=== PATIENT | female | born 1975 ===

== ENCOUNTER 2025-01-01 12:34 | Emergency (ER) | payer OTHER, SELFPAY ==
--- NOTE | ~2025-01-01 | CT_ITS ---
EXAMINATION: CT ABDOMEN AND PELVIS WITH CONTRAST CLINICAL INFORMATION:diffuse abdominal pain 2 months, repetitive vomiting and diarrhea COMPARISON: None available. TECHNIQUE: Multidetector volumetric images were obtained from the superior aspect of the liver through the pubic symphysis following administration 85 mL of Omnipaque 350 intravenous contrast. Sagittal and coronal reformatted images were obtained on the technologist's workstation. Oral contrast: No This CT examination was performed using dose optimization techniques as appropriate, variously including the following: *Automated exposure control *Adjustment of mA and/or kV according to patient size (this includes techniques or standardized protocols for targeted exams where dose is matched to indication/reason for exam; i.e. extremities or head) *Use of iterative reconstruction technique DLP: 1039 mGY*cm FINDINGS: LUNG BASES: The visualized lung bases are unremarkable. LIVER, GALLBLADDER, AND BILIARY TREE: Circumscribed 7 mm low attenuating lesion in the superior left lateral segment liver likely represent small simple hepatic cyst. Gallbladder is nonvisualized, likely from cholecystectomy. PANCREAS: Unremarkable. SPLEEN: Unremarkable. ADRENAL GLANDS: Unremarkable. KIDNEYS AND URETERS: The kidneys are normal in size, shape, and attenuation. No hydronephrosis, hydroureter, or calculi seen. No perinephric stranding. BLADDER: Unremarkable. GASTROINTESTINAL TRACT: A few scattered pseudodiverticula are present in the transverse, descending, and sigmoid colon. The appendix is within normal limits. ABDOMINAL WALL: Small umbilical hernia contains adipose tissue. LYMPH NODES: There is a right external iliac lymph node measuring 12 mm short axis and a left-sided node measuring 14 mm short axis. There is no other adenopathy. VASCULAR: Unremarkable. PELVIC VISCERA: Uterus and ovaries are unremarkable. There is no free fluid. OSSEOUS STRUCTURES: Unremarkable. CT/CT abdomen pelvis w IV con IMPRESSION: Lymphadenopathy. There are 2 enlarged lymph nodes adjacent the external iliac vessels, near the inguinal canal. The right lymph node measures 12 mm, and the left measures 14 mm short axis. These could represent reactive hyperplastic nodes, but malignancy is not ruled out. Diverticulosis without sign of infection. Fleischner guidelines were followed. Electronically signed by: Price Snider MD 01/01/2025 03:59 PM EDT
[2025-01-01 12:44] VITALS: BP 115/75; PULSE 84; RESP 18; TEMP 36.6; O2SAT 97; BMI 36.1
--- NOTE | 2025-01-01 12:44 | ED.GENADULT ---
HPI - General Adult General Chief complaint: Abdominal Pain Stated complaint: itching on hands, pain on R abd Time Seen by Provider: 01/01/25 13:51 Source: patient, family, RN notes reviewed and systems engineer Mode of arrival: ambulatory Limitations: language barrier History of Present Illness ED Provider: Sera Marroquin PA-C HPI narrative: 49-year-old woman presenting to the emergency department today for evaluation of abdominal pain. Utilized a formal solar panel installer for her history and physical process as she did want to use her but I had fear of the communication being limited history being limited due to this. Occurs patient reported that only for the last 2 months she has had nausea vomiting and diarrhea almost on a daily basis associated sometimes with headaches. An as physical with on she then stated that she had a similar episode despite denying this originally that she had this same thing happened to her last year and she got a colonoscopy at [facility] and was told that she had potentially diverticulitis but then there was no follow up and no antibiotics. She has not established with a primary care provider. She did try to call her health insurance who gave her information but she is still not established with 1. Patient moved to [facility] in 2019. She denies any known food allergies. No fevers no chills. She reports food not making it worse but sometimes does notice it at causes more of her symptoms. She denies having any blood in her stool or her vomit. No history of in a few weeks she is. She is able to tolerate p.o. fluids and void regularly no symptoms. She denies having a backache. No current headache. Patient also reports that her hands feel very itchy for the last several weeks. She notices sometimes her palms or red. She does work with cleaning products but wears gloves she does wash her hands frequently. She has not noticed any itchiness beyond this area. This has never happened to her before she has been doing this job for about 1 year now. She denies any chemical exposures. Related Data Home Medications ?Medication ?Instructions ?Recorded ?Confirmed diclofenac sodium 50 mg 50 mg PO BID 02/17/22 tablet,delayed release podofilox 0.5 % topical solution ml topical 02/17/22 tizanidine 2 mg tablet 2 mg PO BEDTIME 02/17/22 Previous Rx's ?Medication ?Instructions ?Recorded ondansetron HCl 4 mg tablet 4 mg PO Q8H PRN nausea and 01/01/25 vomiting #10 tabs Allergies Allergy/AdvReac Type Severity Reaction Status Date / Time No Known Allergies Allergy Verified 01/01/25 12:47 Review of Systems Review of Systems: Yes all other systems are reviewed and are negative PMFSH Past Medical History Attestation statement: The following information was validated with the patient. Source: old records reviewed (no old records to review) and nursing notes reviewed Physical Exam ED Exam Exam: General: Appears in no acute distress, appears well nourished body habitus is obese, appears. No septic or ill-appearing. Vitals reviewed normal, PMH/Social and Surgical hx reviewed including allergies and current medications. no prior visits here. Head: Normocephalic, no obvious trauma or skin lesions noted. Eyes: EOMI ENMT: moist oral mucosa, Neck: trachea midline Cardiovascular: peripheral perfusion normal, Regular heart rate, regular rhythm Respiratory: no respiratory distress Abdomen: protuberant abdomen, TTP periumbical and mid to lower suprapubic region, no guarding Extremities: warm and moving without difficulty dry skin both palms, crackes at bases but no erythema, she is witnessed to be rolling hands OCD nervous/soothing- like Psych: Cooperative, smiling Neuro: Alert and oriented. Vital Signs: Vital Signs - 24 hr 01/01/25 12:44 01/01/25 13:46 Temperature 97.9 F Pulse Rate 84 80 Respiratory Rate 18 16 Blood Pressure 115/75 107/68 Pulse Oximetry 97 98 Oxygen Delivery Method Room Air Room Air BMI result Body Mass Index 36.1 Course Course Course Narrative: This is a Rapid Medical Examination (RME) performed by Cyn Del Rosario PA-C in triage. Full HPI, ROS, assessment and treatment plan per primary provider in the Main ED. Hx: 49 yo F here for eval of R sided abd pain x2 mo. reports history of liver issues in 2017 in [facility]. admits to vomiting and diarrhea. Plan: labs Medications Administered Discontinued Medications Generic Name Dose Route Start Last Admin Trade Name Freq PRN Reason Stop Dose Admin Iohexol 100 ml 01/01/25 15:30 01/01/25 15:36 Iohexol 350 Mg/Ml 100 Ml Infus..Btl IV 01/01/25 15:31 85 ml ONCE ONE Administration Medical Decision Making Medical Decision Making MDM Narrative: Well-appearing 49-year-old female here today. The utilize a formal solar panel installer for patient's history physical and discharge process. She has ongoing chronic GI symptoms it appears to have unclear history of what her latest colonoscopy results was over a year ago. She had abdominal labs and CT scan or ordered for further workup. At this time differential on fluids functional dyspepsia, colitis, diverticulitis, gastritis, irritable bowel syndrome or inflammatory bowel syndrome. She is afebrile and well-appearing abdomen mildly tender pain well-controlled. Patient's workup largely unremarkable she has no evidence of leukocytosis or metabolic derangement no hepatobiliary disease. CT scan of the abdomen shows diverticulosis without any diverticulitis. No intra-abdominal infectious pathology noted- given lymphadenopathy- will refer to GI for further consult/work-up. This was discussed with the patient who demonstrated verbal understanding of the plan and agreed. She was discharged home stable Differential Diagnosis Differential Diagnoses: The differential diagnosis associated with the presentation includes See [facility] Admission/Observation Consideration of admission/observation: Escalation of care including admission/observation considered Patient would have been admitted to the hospital had her work up had any findings where hospital admission was appropriate and her clinical presentation warranted hospital admission. Lab Data [facility] Lab Attestation statement: I reviewed the patient's lab results. No leukocytosis no metabolic dysfunction or kidney injury. 01/01/25 12:53 01/01/25 14:42 Labs: Lab Results 01/01/25 01/01/25 01/01/25 Range/Units 12:53 14:18 14:42 WBC 6.0 (4.8-10.8) X10*3/uL RBC 4.54 (4.20-5.50) X10*6/uL Hgb 12.7 (12.0-16.0) g/dl Hct 38.3 (37.0-47.0) % MCV 84.4 (80.0-98.0) fL MCH 28.0 (27.0-33.0) pg MCHC 33.2 (31.0-35.0) g/dl RDW 13.5 (11.0-16.0) % Plt Count 263 (160-400) X10*3/uL MPV 10.9 (9.4-12.3) fL Immature Gran % (Auto) 0.5 H (0.0-0.4) % Neut % (Auto) 60.4 (45-73) % Lymph % (Auto) 28.4 (20-40) % Sharp % (Auto) 7.7 (2-11) % Eos % (Auto) 2.5 (0-4) % Baso % (Auto) 0.5 (0-2) % Lymph # (Auto) 1.7 (1.2-4.9) X10*3/uL Sharp # (Auto) 0.5 (0.1-1.2) X10*3/uL Eos # (Auto) 0.2 (0.0-0.4) X10*3/uL Baso # (Auto) 0.0 (0.0-0.2) X10*3/uL Abs Immat Gran (auto) 0.03 (0.00-0.03) X10*3/uL Absolute Neuts (auto) 3.6 (2.0-8.3) x10*3/uL Absolute Nucleated RBC 0.000 (0.0-0.012) X10*3/uL Nucleated RBC % (auto) 0.0 (0.0-0.2) /100WBC Sodium 140 (135-145) mmol/L Potassium 4.5 (3.3-5.1) mmol/L Chloride 108 (96-108) mmol/L Carbon Dioxide 24 (22-29) mmol/L Anion Gap 13 (12-20) BUN 14 (9-16) mg/dL Creatinine 0.95 (0.5-1.4) mg/dL Estim Creat Clear Calc 70.3 Estimated GFR > 60 Random Glucose 94 (60-115) mg/dL Calcium 9.5 (8.4-10.2) mg/dL Magnesium 1.8 (1.6-2.6) mg/dL Total Bilirubin 0.9 (0.0-1.0) mg/dL Direct Bilirubin 0.2 (0.0-0.5) mg/dL AST 28 (5-31) U/L ALT 26 (0-31) U/L Alkaline Phosphatase 103 (39-117) U/L Total Protein 7.3 (6.5-8.0) g/dL Albumin 4.3 (3.5-5.0) g/dL Lipase 80 H (8-78) U/L Urine Color Yellow Urine Appearance Clear Urine pH 5.5 (5.0-9.0) Ur Specific [place] <= 1.005 (1.005-1.025) Urine Protein Negative (Neg-Trace) mg/dL Urine Glucose (UA) Negative (Negative) mg/dL Urine Ketones Negative (Negative) mg/dL Urine Blood Negative (Negative) Urine Nitrite Negative (Negative) Ur Leukocyte Esterase Negative (Negative) Urine Test NEGATIVE (NEGATIVE) Independent Interpretation I performed an independent interpretation of an: CT Scan Radiology Impression Discussion of test interpretation with radiology: I have reviewed the radiologist's reading. Radiologist Impression: IMPRESSION: Lymphadenopathy. There are 2 enlarged lymph nodes adjacent the external iliac vessels, near the inguinal canal. The right lymph node measures 12 mm, and the left measures 14 mm short axis. These could represent reactive hyperplastic nodes, but malignancy is not ruled out. Diverticulosis without sign of infection. Independent Historian Clinical information obtained from an independent historian. History obtained from or confirmed by: Spouse and Other (solar panel installer) Prescription Management I considered prescription management with: Pain Medication Social Determinants Patient?s care significantly limited by Social Determinants of Health including: Other Social Determinant of Health Discharge Plan Discharge Clinical Impression: Diverticulosis, Abdominal pain, Gastroenteritis Patient Disposition: Home, Self-Care Instructions: Diverticulosis (DC), Abdominal Pain (ED) Additional Instructions: Acudi? a urgencias por s?ntomas cr?nicos de n?useas, v?mitos y diarrea. Sun tomograf?a computarizada de hoy no presenta un proceso infeccioso rafael. Divya an?lisis son tranquilizadores. Por favor, consulte con gastroenterolog?a para savita consulta externa. Conc?ntrese en la hidrataci?n. Si el dolor abdominal empeora o nota benjamin en las heces o el v?sanjiv, acuda a urgencias. Use Zofran si es necesario para las n?useas. Llame a gastroenterolog?a para programar savita jody. You were seen in the emergency department due to chronic symptoms of nausea, vomiting and diarrhea. There is not an acute infectious process on your CT scan today. Your labs are reassuring. Please follow up outpatient with gastroenterology. Focus on hydration. If you experience worsening abdominal pain or notice blood in your stool or vomit, please return to the emergency department. Use zofran if needed for nausea. Call gastroenterology to schedule an appointment. Your CT results: IMPRESSION: Lymphadenopathy. There are 2 enlarged lymph nodes adjacent the external iliac vessels, near the inguinal canal. The right lymph node measures 12 mm, and the left measures 14 mm short axis. These could represent reactive hyperplastic nodes, but malignancy is not ruled out. Diverticulosis without sign of infection. Prescriptions: New ondansetron HCl 4 mg tablet 4 mg PO Q8H PRN (Reason: nausea and vomiting) Qty: 10 0RF No Action tizanidine 2 mg tablet 2 mg PO BEDTIME podofilox 0.5 % solution topical diclofenac sodium 50 mg tablet,delayed release (DR/EC) 50 mg PO BID Referrals: [facility] [place] Gastroenterology Services [Provider Group, Gastroenterology] Referral Note: chronic abd pain Interventions: ED Discharge Assessment Last Done: 01/01/25 17:16 Discharge Date/Time: 01/01/25 17:17 Print Language: Greenlandic
[2025-01-01 13:04] LABS: MANUAL DIFF FLAG NO
[2025-01-01 13:11] LABS: Hematocrit 38.3 % (37.0-47.0); Hemoglobin 12.7 g/dl (12.0-16.0); Imm Gran Abs Auto 0.03 X10*3/uL (0.00-0.03); Imm Gran Pct Auto 0.5 % (0.0-0.4); Lymphocytes Absolute Auto 1.7 X10*3/uL (1.2-4.9); Mean Corpuscular HGB Conc 33.2 g/dl (31.0-35.0); Mean Corpuscular Hemoglobin 28.0 pg (27.0-33.0); Mean Corpuscular Volume 84.4 fL (80.0-98.0); NRBC Abs Auto 0.000 X10*3/uL (0.0-0.012); NRBC Pct Auto 0.0 /100WBC (0.0-0.2); Platelet Count 263 X10*3/uL (160-400); Red Blood Count 4.54 X10*6/uL (4.20-5.50); White Blood Count 6.0 X10*3/uL (4.8-10.8)
[2025-01-01 13:24] LABS: Alanine Aminotransferase 26 U/L (0-31); Albumin Level 4.3 g/dL (3.5-5.0); Alkaline Phosphatase 103 U/L (39-117); Aspartate Amino Transferase 28 U/L (5-31); Lipase 80 U/L (8-78); Magnesium 1.8 mg/dL (1.6-2.6); Total Protein 7.3 g/dL (6.5-8.0)
--- NOTE | 2025-01-01 13:42 | PC.NURSE ---
49 F presents to ED with abdominal pain, n/v x 2 days with a headache. A+OX4, calm, cooperative, and ambulatory. Pt sts pain started suddenly, starts in upper admomen and travels to L and R lower abdomen. Pt denies any CP or SOB, RR even and unlabored. Sts 8/10 pain in abdomen. Pt also c/o L sided headache and L hand pain.
[2025-01-01 13:46] VITALS: BP 107/68; PULSE 80; RESP 16; O2SAT 98
[2025-01-01 14:23] LABS: Appearance Urine Clear; Glucose Urine UA Negative (Negative); PH 5.5 (5.0-9.0); Specific Gravity - Urine <= 1.005 (1.005-1.025)
[2025-01-01 14:35] LABS: UPreg QC Valid YES
[2025-01-01 15:00] LABS: Anion Gap 13 (12-20); Blood Urea Nitrogen 14 mg/dL (9-16); Calcium 9.5 mg/dL (8.4-10.2); Carbon Dioxide 24 mmol/L (22-29); Chloride 108 mmol/L (96-108); Creatinine Clr Calc Pharmacy 70.3; Estimated Glomerular Filt Rate > 60; Potassium 4.5 mmol/L (3.3-5.1); Sodium 140 mmol/L (135-145)
[2025-01-01] MEDS: iohexoL 350 MG/ML 100 ML INFUS..BTL IV (15:36)
--- OUTSIDE RECORDS SUMMARY | 2025-01-01 15:53 | XMS_ITS ---
Author Name [facility] Organization Unknown Care Team Organization Name Specialty Phone Email Start Date End Da te [facility] 03/08/20222023
--- OUTSIDE RECORDS SUMMARY | 2025-01-01 15:53 | XMS_ITS | Encounter Summary ---
Author Organization [facility] Address [address] [place] [address] Care Team Providers Care Efficiency Miner Name Role Phone Alcira Cowan MORTGAGE LOAN PROCESSING CLERK Primary Care Provider [phone] Encounter Details Date Type Department Care Team (Late st Contact Info) Description 01/01/2025 Interim Notes [facility] [address] [place] [id number] Alcira Cowan NP [address] [place] [address] Social History Tobacco Use Types Packs/Day Years Used Date Smoking Tobacco: Never Smokeless Tobacco: Never Alcohol Use Standard Drinks/Week Comments Never 0 (1 standard drink = 0.6 oz pur e alcohol) Social Connections Answer Date Recorded How often do you feel lonely or isolated from th ose around you? 1 05/10/2024 Financial Resource Strain Answer Date R ecorded Hard to pay for: Food 1 05/10/2024 Stress Answer Date Recorded Do you feel these kinds of stress these days? 1 05/10/2024 Physical Activity Answer Date Recorded Physical Activity 0 05/12/2021 Food Insecurity Answer Date Recorded Hard to pay for: Food 1 05/10/2024 Transportation Needs Answer Date Record ed Hard to pay for: Transportation 1 05/10/2024 Housing Stability Answer Date Recorded Hard to pay for: Rent/Mortgage payment 1 05/10/2024 Safety and Environment Answer Date Cyril rded How often does anyone, inclu ding family and friends, physically hurt you? 1 05/10/2024 Utilities Answer Date Recorded Hard to pay for: Utilities 1 05/10 Employment Answer Date Recorded Stress 0 01/22/2024 Comments No Sex and Gender Information Value Date Recorded Sex Assigned at Female 05/04/2023 10:03 AM PST Legal Sex Female 7:04 AM PST Gender Identity Female 05/04/2023 10:03 AM PST Sexual Orientation Straight 05/04/2023 10 :03 AM PST documented as of this encounter Plan of Treatment Not on file documented as of this encounter Visit Diagnoses Not on filedocumented in this encounter Additional Health Concerns Assessment Noted Time PHQ-9 Depression Total Score: 3 05/10/19 1:44 PM PST A Depression follow-up plan has been documented for the patient 05/10/2024 4:16 PM PST documented as of this encounter Care Teams Efficiency Miner Relationship Specialty Start Date End Date Alcira Cowan NP [address] [place] [address] PCP - General Family Medicine, MORTGAGE LOAN PROCESSING CLERK 12/23/24 documented as of this encounter
--- OUTSIDE RECORDS SUMMARY | 2025-01-01 15:53 | XMS_ITS | Clinical Summary ---
Author Organization [facility] Address [address] [place] [address] Care Team Providers Care Stretcher Drier Operator Name Role Phone Alcira Cowan PONCHO Primary Care Provider [phone] Source Comments PLEASE NOTE, if this patient is a minor, it may be UNLAWFUL to discuss sensitive information that is contained in these records (such as FAMILY PLANNING, MENTAL HEALTH or SUBSTANCE ABUSE) with the minor patient's parent or other person without the patient's specific authorization.[facility] Allergies No known active allergies Medications riboflavin, vitamin B2, 400 mg tab Take 400 mg by mouth [address] Active [address] tablet Take 81 mg by mouth 3 Active magnesium oxide,aspartate,c itr (TRIPLE MAGNESIUM COMPLEX) 400 mg magnesium cap Take 400 mg by mouth 3 Active aspirin-acetamino phen-caffeine (EXCEDRIN MIGRAINE) 250-250-65 mg per tabletIndications :Migraine without aura and without status migrainosus, not intractable Take 1 Tablet by mouth every 6 (six) hours as needed for pain 60 Tablet 1 4 Active benzonatate (TESSALON) 200 mg capsuleIndication s:Viral upper respiratory tract infection Take 1 Capsule by mouth 3 (three) times daily as needed for cough 30 Capsule 5 Active betamethasone dipropionate 0.05 % ointmentIndicatio ns:Acute hand eczema Apply topically 2 (two) times daily. 45 g 5 Active Active Problems Problem Noted Date Diagnosed Date Colon cancer screening 12/26/2024 Overview (12/26/2024): 09/17/24 Colonoscopy [facility] IMPRESSION:Diverticulosis in the sigmoid colon. - No specimens collected. Repeat colonoscopy in 10 years for screening H/O mammogram 04/12/2024 Overview (04/12/2024): 04/10/2024 - Mammogram - Impression: No Mammographic evidence of malignancy. Recommendation: Annual Mammographic screening. Bi-RADS: 1 ( Negative) Prediabetes 05/05/2023 Migraine without aura and wi thout status migrainosus, not intractable 05/05/2023 Overview (05/05/2023): Follows with neurologist Class 1 obesity due to exces s calories without serious comorbidity with body mass index (BMI) of 34.0 to 34.9 in adult 05/05/2023 Moderate episode of recurren t major depressive disorder ([facility]) 05/05/2023 Encounters Date Type Department Care Team Description 01/01/2025 Interim Notes [address] [phone] Alcira Cowan NP 12/17/2024 10:00 AM EDT Office Visit [address] [phone] Eddi Jeffery FNP 10/08/2024 9:00 AM EDT Telemedicine Visit [address] [phone] from Last 3 Months Immunizations Immunization Administration Dates Next Due Flu, Preservative Free 05/05/2023,07/16/2020 INFLUENZA, SEASONAL, INJECTABLE 05/05/2021 PFIZER COVID VACCINE, PURPLE CAP, 12+ 04/22/2021 ,09/16/2020,08/24/2020 TDAP 07/17/2020 Social History Tobacco Use Types Packs/Day Years Used Date Smoking Tobacco: Never Smokeless Tobacco: Never Tobacco Cessation:Counseling Given: Not Answered Alcohol Use Standard Drinks/Week Comments Never 0 [...] Orientation Straight 05/04/2023 10 :03 AM PST Last Filed Vital Signs Vital Sign Reading Time Taken Comments Blood Pressure 128/84 12/17/2024 9:52 AM EDT Pulse 75 12/17/2024 9:52 AM EDT Temperature 37.2 C (98.9 F) 12/17/2024 9:52 AM EDT Respiratory Rate 14 12/17/2024 9:52 AM EDT Oxygen Saturation 99% 05/10/2024 1:58 PM EST Inhaled Oxygen Concentration - - Weight 83.5 kg (184 lb) 12/17/2024 9:52 AM EDT Height 154.9 cm (5' 1 ) 06/03/2024 9:20 AM EST Body Mass Index 34.77 06/03/2024 9:20 AM EST Plan of Treatment Health Maintenance Due Date Last Done Comments HPV Screening 1975 Pap + HPV 1975 Imm-Hepatitis B (1 of 3 - 19 + 3-dose series) 1996 CT Colonography 2022 Colonoscopy 2022 Colorectal Cancer Screening 2022 FIT/gFOBT 2022 Fecal DNA 2022 Flexible Sigmoidoscopy 2022 Depression Monitoring 08/08/2024 05/10/2024 , 12/15/2023, 05/05/2023 Imm-Influenza (#1) 2024 05/05/2023, 0 05/05/2021, 07/16/2020 Cervical Cancer Screening 05/04/2025 Pap Smear 05/04/2025 05/04/2022 Annual Wellness (Adult): Indicated (All Coverage) 05/10/2025 05/10/2024, 05/10/2024, 05/05/2023 Anxiety Screening 05/10/2025 05/10/2024 Relationship Safety Screening/Counseling 05/10/2025 05/10/2024 Diabetes Screening 08/09/2025 08/09/2024, 0 05/10/2024, 12/15/2023, Additional history exists Hypertension Screening (#1) 12/17/2025 Tobacco Screening 12/17/2025 12/17/2024 Breast Cancer Screening (Mammogram) 04/10/2026 04/10/2024 Lipid Screening 05/10/2027 05/10/2024, 05/05/2023 Imm-DTaP/Tdap/Td (2 - Td or Tdap) 07/17/2030 021 [id number] Discontinued 04/22/2021, 08/29, 08/24/2020 HIV Screening Completed 05/05/2023 Hepatitis C Screening Completed 05/05/2023 Alcohol and Drug Screen Completed 05/10/2024, 05/05 Cervical Ablation/Cold-Knife Conization Discontinued Cervical Cryotherapy Discontinued Colposcopy Discontinued Endometrial Biopsy Discontinued Excision/Leep Discontinued HPV Genotyping Discontinued Vaginal Pap Discontinued Vulvoscopy Discontinued Procedures Procedure Name Priority Date/Time Associated Diagnosis Comments HGBA1C W/MPG Routine 08/09/2024 11:41 AM EDT Class 1 obesity due to excess calories without serious comorbidity with body mass index (BMI) of 34.0 to 34.9 in adult Prediabetes LIPID PANEL Routine 05/10/2024 2:55 PM EST Annual physical exam REFERRAL FOR MAMMOGRAM Routine 04/10/2024 3:00 AM EST Screening due HIV 1/2 AG & AB W/RFLX (4TH GEN) Routine 05/05/2023 1:54 PM EST Exposure to potential infection HEPATITIS C AB W/RFLX HCV RNA, QT, RT PCR Routine 05/05/2023 1:54 PM EST Exposure to potential infection from Last 3 Months or Most Recently Relevant to Health Maintenance Results * (ABNORMAL) HGBA1C W/MPG (08/09/2024 11:41 AM EDT) HEMOGLOBIN A1C 6.0(H) <5.7 % of total Hgb [facility] Comment: For someone without known diabetes, a hemoglobin A1c value between 5.7% and 6.4% is consistent with prediabetes and should be confirmed with a follow-up test. For someone with known diabetes, a value <7% indicates that their diabetes is well controlled. A1c targets should be individualized based on duration of diabetes, age, comorbid conditions, and other considerations. This assay result is consistent with an increased risk of diabetes. Currently, no consensus exists regarding use of hemoglobin A1c for diagnosis of diabetes for children. MEAN PLASMA GLUCOSE 136 mg/dL (calc) [facility] Blood Blood / Unknown 08/09/2024 1 1:41 AM EDT 08/09/2024 11:41 AM EDT Sharron Casas PA-C LAB - BLOOD DRAW Final Resu lt [facility] [address] [place] [id number], [facility] [address] [place] [phone] * LIPID PANEL (05/10/2024 2:55 PM EST) CHOLESTEROL, TOTAL 189 <200 mg/dL [facility] HDL CHOLESTEROL 76 > OR = 50 mg/dL [facility] TRIGLYCERIDES 95 <150 mg/dL [facility] LDL-CHOLESTEROL 94 99 mg/dL (calc) [facility] Comment: Reference range: <100 Desirable range <100 mg/dL for primary prevention; <70 mg/dL for patients with CHD or diabetic patients with > or = 2 CHD risk factors. LDL-C is now calculated using the Zoë calculation, which is a validated novel method providing better accuracy than the Friedewald equation in the estimation of LDL-C. Peyman DE JESUS et al. MIKHAIL. 2013;310(19): 7294-6011 (http://JJ PHARMA.Tubett/faq/XTS642) CHOL/HDLC RATIO 2.5 <5.0 (calc) [facility] NON-HDL CHOLESTEROL 113 <130 mg/dL (calc) [facility] Comment: For patients with diabetes plus 1 major ASCVD risk factor, treating to a non-HDL-C goal of <100 mg/dL (LDL-C of <70 mg/dL) is considered a therapeutic option. Blood Blood / Unknown 05/10/2024 2 :55 PM EST 05/10/2024 2:55 PM EST Narrative [facility] - 05/11/2024 12:23 PM EST FASTING:NO Sharron Casas PA-C LAB - BLOOD DRAW Final Resu lt [facility] [address] [place] [address], [facility] [address] [phone] * REFERRAL FOR MAMMOGRAM SCREENING (04/10/2024 3:00 AM EST) 04/10/2024 3:00 AM EST Sharron Casas PA-C IMG RFL MAMMO Final Resul t * HEPATITIS C AB W/RFLX HCV RNA, QT, RT PCR (05/05/2023 1:54 PM EST) HEPATITIS C ANTIBODY NON-REACT BOBBY NON-REACT BOBBY [facility] Comment: HCV antibody was non-reactive. There is no laboratory evidence of HCV infection. In most cases, no further action is required. However, if recent HCV exposure is suspected, a test for HCV RNA (test code 49793) is suggested. For additional information please refer to http://education.Gini & Jony/faq/BHT58v2 (This link is being provided for informational/ educational purposes only.) Blood Blood / Unknown 05/05/2023 1 :54 PM EST 05/05/2023 1:54 PM EST Narrative [facility] - 05/06/2023 10:38 AM EST FASTING:YES Odell Paiz MD LAB - BLOOD DRAW Edited Resu lt - Final Performing Organization Address [facility] de Phone Number Level [address] [address], Level [address] [address] * HIV 1/2 AG & AB W/RFLX (4TH GEN) (05/05/2023 1:54 PM EST) HIV AG/AB, 4TH GEN NON-REAC TIVE NON-REAC TIVE Level [facility] Comment: HIV-1 antigen and HIV-1/HIV-2 antibodies were not detected. There is no laboratory evidence of HIV infection. PLEASE NOTE: This information has been disclosed to you from records whose confidentiality may be protected by state law. If your state requires such protection, then the state law prohibits you from making any further disclosure of the information without the specific written consent of the person to whom it pertains, or as otherwise permitted by law. A general authorization for the release of medical or other information is NOT sufficient for this purpose. For additional information please refer to http://education.Applicasa.iBloom Technologies/faq/ONV806 (This link is being provided for informational/ educational purposes only.) The performance of this assay has not been clinically validated in patients less than 2 years old. Blood Blood / Unknown 05/05/2023 1 :54 PM EST 05/05/2023 1:54 PM EST Narrative Level [facility] - 05/06/2023 10:38 AM EST FASTING:YES us Odell Paiz MD LAB - BLOOD DRAW Final Resul t Performing Organization Address [facility] de Phone Number Level [address] [address], Level [facility] [address] [place] [address] from Last 3 Months or Most Recently Relevant to Health Maintenance Insurance HE[employer]AF[employer] NET [employer] Member Subscriber Plan / Payer (Ef fective 2024-Present) Name:Christelle Shaver Relation to Subscriber:Self Name:Christelle Shaver Payer ID:[id number] Type:Indemnity Address: [facility] [address] [place] [address] Care Teams Stretcher Drier Operator Relationship Specialty Start Date End Date Alcira Cowan NP [facility] [place] [address] PCP - General Family Medicine, POLO COACH 12/23/24
--- OUTSIDE RECORDS SUMMARY | 2025-01-01 15:53 | XMS_ITS | Clinical Summary ---
Author Organization [facility] Address [address] [place] [address] Phone Care Team Providers Care Career Law Clerk Name Role Phone Sharron Casas Primary Care Provider [phone] Allergies No known active allergies Medications aspirin 81 mg EC tablet Take 1 tablet (81 mg total) by mouth 1 (one) time each day. 3 Active aspirin-acetami nophen-caffeine (Excedrin Extra Strength) 250-250-65 mg per tablet Take 1 tablet by mouth every 6 hours as needed. 4 Active magnesium aspart,citrate, oxide (Triple Magnesium Complex) 400 mg magnesium capsule Take 1 capsule by mouth 1 (one) time each day. 3 Active riboflavin (VITAMIN B2) 400 mg tablet Take 1 tablet (400 mg total) by mouth 1 (one) time each day. 3 Active bisacodyL (DULCOLAX) 5 mg EC tablet Take 2 tablets by mouth right before beginning bowel prep. See instructions provided by the office 2 tablet 5 Active polyethylene glycol (Golytely) 236-22.74-6.74 -5.86 gram solution Take 4L by mouth once for one dose. May substitue any PEG. Starting at 6PM the night before your procedure drink 1 8oz glasses at your own pace until you complete half of the gallon. Finish 2nd half of the gallon 5 hours before your procedure. 4000 mL 5 Active Surgical History Surgery Date Site/Laterality Comments CHOLECYSTECTOMY PROCEDURE: HISTORICAL CHOLECYSTECTOMY SECTION Medical History Medical History Date Comments Elevated blood sugar level 07/29/2021 DX:El evated blood sugar level Subclinical hypothyroidism 08/01/2021 DX:Sun bclinical hypothyroidism Family history of cardiovasc ular disease DX:Family history of cardiov ascular disease Stroke (cerebrum) (CMS/HCC V 24, CMS/HCC V28) Family History Medical History Relation Name Comments Heart attack Father Other: heart disease Father Hypertension Mother Relation Name Status Comments Father Mother Social History Tobacco Use Types Packs/Day Years Used Date Smoking Tobacco: Never Smokeless Tobacco: Never Alcohol Use Standard Drinks/Week Comments Never 0 (1 standard drink = 0.6 oz pur e alcohol) Interpersonal Safety Answer Date Record ed Physical Abuse 09/17/2024 Verbal Abuse 09/17/2024 Comments No Sex and Gender Information Value Date Recorded Sex Assigned at Female 05/30/2024 12:57 PM EST Legal Sex Female 11:04 AM EST Gender Identity Female 05/30/2024 12:57 PM EST Sexual Orientation Straight 05/30/2024 12 :57 PM EST Obstetrics History Last Filed Vital Signs Vital Sign Reading Time Taken Comments Blood Pressure 120/81 09/17/2024 2:50 PM EDT Pulse 81 09/17/2024 2:50 PM EDT Temperature 36.1 C (97 F) 09/17/2024 2:33 PM EDT Respiratory Rate 18 09/17/2024 2:50 PM EDT Oxygen Saturation 99% 09/17/2024 2:50 PM EDT Inhaled Oxygen Concentration - - Weight 84.4 kg (186 lb) 09/17/2024 2:02 PM EDT Height 152.4 cm (5') 09/17/2024 2:02 PM EDT Body Mass Index 36.33 09/17/2024 2:02 PM EDT Plan of Treatment Health Maintenance Due Date Last Done Comments Breast Cancer Screening 1977 Diabetes: Annual Foot Exam 11/14/1987 Diabetes: Annual Retina Eye Exam 11/14/1987 Hepatitis B Vaccines (1 of 3 - 19+ 3-dose series) 1996 Cervical Cancer Screening: P ap Smear 1998 HIV Screening 04/10/2022 Social Influencers of Health Screening 04/10/2022 COVID-19 Vaccine (2023-2 5 season) 2023 04/22/2021, 09/16/2020, 08/24/2020 Depression Screening 05/01/2024 Diabetes: Annual Urine Albumin-Creatinine Ratio (uACR) 05/30/2024 Influenza Vaccine (#1) 2024 , 05/05/2021, 07/16/2020 Diabetes: Blood Sugar Contro l Test (HGBA1C) 02/08/2025 08/09/2024, 05/05/2023 Diabetes: Annual GFR (Glomerular Filtration Rate) 05/10/2025 05/10/2024, 12/15/2023, 05/05/2023 Cholesterol Screening (Lipid Panel) 05/10/2029 05/10/2024, 05/10/2024, 05/05/2023 DTaP,Tdap,and Td Vaccines (2 - Td or Tdap) 07/17/2030 07/17/2020 Colorectal Cancer Screening: Colonoscopy 09/17/2034 09/17/2024 Hepatitis C Screening Completed 05/05/2023 HIB Vaccines Aged Out No longer eligi ble based on patient's age to complete this topic HPV Vaccines Aged Out No longer eligi ble based on patient's age to complete this topic Hepatitis A Vaccines Aged Out No long er eligible based on patient's age to complete this topic IPV Vaccines Aged Out No longer eligi ble based on patient's age to complete this topic MMR Vaccines Aged Out No longer eligi ble based on patient's age to complete this topic Meningococcal ACWY Vaccine Aged Out N o longer eligible based on patient's age to complete this topic Meningococcal B Vaccine Aged Out No l onger eligible based on patient's age to complete this topic Pneumococcal Vaccine: Pediatrics (0 to 5 Years) and At-Risk Patients (6 to 49 Years) Aged Out No longer eligible b ased on patient's age to complete this topic RSV Immunization Patients Under 20 months Aged Out No longer eligible b ased on patient's age to complete this topic Varicella Vaccines Aged Out No longer eligible based on patient's age to complete this topic Procedures Procedure Name Priority Date/Time Associated Diagnosis Comments COLONOSCOPY Routine 09/17/2024 2:29 PM EDT Colon cancer screening from Last 3 Months or Most Recently Relevant to Health Maintenance Results * COLONOSCOPY Anesthesia - MAC; [facility] ENDOSCOPY (09/17/2024 2:29 PM EDT) Anatomical Region Laterality Modality Other 09/17/2024 1:58 PM EDT Impressions 09/17/2024 2:30 PM EDT - Diverticulosis in the sigmoid colon. - No specimens collected. Recommendation: - Repeat colonoscopy in 10 years for screening purposes. - Use fiber, for example Citrucel, Fibercon, Konsyl or Metamucil. Narrative 09/17/2024 2:30 PM EDT [facility] GI Patient Name: Christelle Marroquin Procedure Date: 09/17/2024 1:58 PM Date of : 1975 Age: 48 Gender: Female Note Status: Finalized Attending MD: Bob Curiel MD, Procedure Date No Time: 09/17/2024 Procedure: Colonoscopy Indications: Screening for colorectal malignant neoplasm Providers: Bob Curiel MD Referring MD: Bob Curiel MD Medicines: Propofol per Anesthesia Complications: No immediate complications. Estimated Blood Loss: Estimated blood loss: none. Procedure: Pre-Anesthesia Assessment: - ASA Grade Assessment: II - A patient with mild systemic disease. After I obtained informed consent, the scope was passed under direct vision. Throughout the procedure, the patient's blood pressure, pulse, and oxygen saturations were monitored continuously.The Colonoscope was introduced through the anus and advanced to the cecum, identified by appendiceal orifice and ileocecal valve. The colonoscopy was performed without difficulty. The patient tolerated the procedure well. The quality of the bowel preparation was adequate. Findings: The perianal and digital rectal examinations were normal. A few diverticula were found in the sigmoid colon. Procedure Code(s): --- Professional --- G0121, Colorectal cancer screening; colonoscopy on individual not meeting criteria for high risk Diagnosis Code(s): --- Professional --- Z12.11, Encounter for screening for malignant neoplasm of colon K57.30, Diverticulosis of large intestine without perforation or abscess without bleeding CPT copyright 2020 [employer]. All rights reserved. The codes documented in this report are preliminary and upon physician coder review may be revised to meet current compliance requirements. Bob Curiel MD 09/17/2024 2:30:10 PM This report has been signed electronically.Bob Curiel MD Number of Addenda: 0 Note Initiated On: 09/17/2024 1:58 PM Scope In: Scope Out: Endoscopy Department at [facility] - [address] [place] [phone] Procedure Note Bob Curiel MD - 09/17/2024 [facility] GI Patient Name: Christelle Marroquin Procedure Date: 09/17/2024 1:58 PM Date of : 1975 Age: 48 Gender: Female Note Status: Finalized Attending MD: Bob Curiel MD, Procedure Date No Time: 09/17/2024 Procedure: Colonoscopy Indications: Screening for colorectal malignant neoplasm Providers: Bob Curiel MD Referring MD: Bob Curiel MD Medicines: Propofol per Anesthesia Complications: No immediate complications. Estimated Blood Loss: Estimated blood loss: none. Procedure: Pre-Anesthesia Assessment: - ASA Grade Assessment: II - A patient with mild systemic disease. After I obtained informed consent, the scope was passed under direct vision. Throughout theprocedure, the patient's blood pressure, pulse, and oxygen saturations were monitored continuously.The Colonoscope was introduced through the anus and advanced to the cecum, identified by appendiceal orifice and ileocecal valve. The colonoscopy was performed without difficulty. The patient tolerated the procedure well. The quality of the bowel preparation was adequate. Findings: The perianal and digital rectal examinations were normal. A few diverticula were found in the sigmoidcolon. Procedure Code(s): --- Professional --- G0121, Colorectal cancer screening; colonoscopy on individual not meeting criteria for high risk Diagnosis Code(s): --- Professional --- Z12.11, Encounter for screening for malignantneoplasm of colon K57.30, Diverticulosis of large intestine without perforation or abscess without bleeding CPT copyright 2020 [employer]. All rights reserved. The codes documented in this report are preliminary and upon physician coder reviewmay be revised to meet current compliance requirements. Bob Curiel MD 09/17/2024 2:30:10 PM This report has been signed electronically.Bob Curiel MD Number of Addenda: 0 Note Initiated On: 09/17/2024 1:58 PM Scope In: Scope Out: Endoscopy Department at [facility] - [address] [place] [phone] IMPRESSION: - Diverticulosis in the sigmoid colon. - No specimens collected. Recommendation: - Repeat colonoscopy in 10 years for screening purposes. - Use fiber, for example Citrucel, Fibercon, Konsylor Metamucil. Bob Curiel MD GI~PROCEDURE ORDERABLES Final Re sult from Last 3 Months or Most Recently Relevant to Health Maintenance [place] [address] [address] [place] [address] [employer] Care Teams Career Law Clerk Relationship Specialty Start Date End Date Sharron Casas PA [address] [place] [address] PCP - General 10/25/24
[2025-01-01 17:16] VITALS: BP 107/68; BP 124/53; PULSE 75; PULSE 80; RESP 14; RESP 16; TEMP -17.7; TEMP 0; TEMP 36.3; O2SAT 100; O2SAT 98
== END 2025-01-01 17:17 | disposition home or self-care (01) ==
PROVIDERS: Physician Assistant Medical; Emergency Provider Emergency Medicine; PCP Dentist General Practice
DX: K57.30 Diverticulosis of large intestine without perforation or abscess without bleeding (principal); R10.2 Pelvic and perineal pain; K52.9 Noninfective gastroenteritis and colitis, unspecified; R11.2 Nausea with vomiting, unspecified; R51.9 Headache, unspecified; Z79.899 Other long term (current) drug therapy
CPT/HCPCS: 36415; 74177; 80048; 80076; 81003; 81025; 83690; 83735; 85025; 99284; 99285; Q9967

== ENCOUNTER → 2025-01-01 14:07 | Outpatient (BNV) | payer SELFPAY | PROVIDERS: Emergency Provider Emergency Medicine; PCP Dentist General Practice; Visit Provider Radiology Diagnostic Radiology | DX: R10.84 Generalized abdominal pain (principal) | CPT/HCPCS: 74177 ==